=== PATIENT | male | born 1975 | race Caucasian/White ===

== ENCOUNTER 2022-05-24 18:35 | Emergency (ER) | payer OTHER, SELFPAY ==
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
[2022-05-24] MEDS ORDERED: LIDOCAINE HCL JELLY 2% 6 ML SYRINGE TOP ONE (19:11)
--- NOTE | 2022-05-24 19:31 | EDPHYS ---
Physician Documentation [facility] Name: Yair Mccarthy II Age: 46 yrs Sex: Male : 1975 Arrival Date: 05/24/2022 Time: 18:36 Bed 13 Private MD: JACQUELINE Physician Darell Mcneil Historical: - Allergies: 05/24 18:47 No Known Allergies; ll1 - PMHx: 18:47 Hypertensive disorder; RLS; ll1 - PSHx: 18:47 back SX, laminectomy; shoulder SX; Appendectomy; ll1 - Immunization history:: Client reports receiving the 2nd dose of the Covid vaccine. - Social history:: Smoking status: Patient denies any tobacco usage or history of. Vital Signs: 18:45 BP 113 / 74; Pulse 74; Resp 16; Temp 98.5; Pulse Ox 100% on R/A; Weight 72.57 kg; ll1 Height 5 ft. 9 in. ; Pain 5/10; 18:45 Body Mass Index 23.63 (72.57 kg, 175.26 cm) ll1 18:45 Pain Scale: Adult ll1 MDM: 18:41 Patient medically screened. cp Administered Medications: No medications were administered Disposition Summary: 05/24/22 19:31 Discharge Ordered Location: Home cp Problem: chronic cp Symptoms: have improved cp Condition: Stable cp Diagnosis - Unspecified hemorrhoids cp Followup: cp - With: Private Physician - When: 2 - 3 days - Reason: Recheck today's complaints Forms: - Medication Reconciliation Form cp - Thank You Letter cp - Antibiotic Education cp - Prescription Opioid Use cp Signatures: Jhonny Lombardo PA PA cp Pérez Ibarra, RN RN ll1
--- NOTE | 2022-05-24 19:31 | ER ---
Nurse's Notes [facility] Name: Yair Mccarthy II Age: 46 yrs Sex: Male : 1975 Arrival Date: 05/24/2022 Time: 18:36 Bed 13 Private MD: Diagnosis: Unspecified hemorrhoids Presentation: 05/24 18:45 Chief complaint: Patient states: Rectal prolapse and hemorrhoids for 2-3 days. Has ll1 history of rectal prolapse. Had to miss work. Coronavirus screen: Vaccine status: Patient reports receiving the 2nd dose of the covid vaccine. Client denies travel out of the [place] in the last 14 days. At this time, the client does not indicate any symptoms associated with coronavirus-19. Ebola Screen: Patient denies travel to an Ebola-affected area in the 21 days before illness onset. Initial Sepsis Screen: Does the patient meet any 2 criteria? No. Patient's initial sepsis screen is negative. Does the patient have a suspected source of infection? Yes: Other: anal pain/prolapse. Risk Assessment: Do you want to hurt yourself or someone else? Patient reports no desire to harm self or others. Onset of symptoms was May 22, 2022. 18:45 Method Of Arrival: Ambulatory ll1 18:45 Acuity: KECIA 4 ll1 Historical: - Allergies: 18:47 No Known Allergies; ll1 - PMHx: 18:47 Hypertensive disorder; RLS; ll1 - PSHx: 18:47 back SX, laminectomy; shoulder SX; Appendectomy; ll1 - Immunization history:: Client reports receiving the 2nd dose of the Covid vaccine. - Social history:: Smoking status: Patient denies any tobacco usage or history of. Vital Signs: 18:45 BP 113 / 74; Pulse 74; Resp 16; Temp 98.5; Pulse Ox 100% on R/A; Weight 72.57 kg; ll1 Height 5 ft. 9 in. ; Pain 5/10; 18:45 Body Mass Index 23.63 (72.57 kg, 175.26 cm) ll1 18:45 Pain Scale: Adult ll1 ED Course: 18:36 Patient arrived in ED. am2 18:41 Jhonny Lombardo PA is PHCP. cp 18:41 Darell Mcneil MD is Attending Physician. cp 18:47 Triage completed. 1 18:48 Arm band placed on Patient placed in an exam room, on a stretcher. ll1 19:03 Yvette Vela, RN is Primary Nurse. eh3 Administered Medications: No medications were administered Outcome: 19:31 Discharge ordered by MD. cp Signatures: Jhonny Lombardo PA PA cp Moreno, Amanda am2 Lewis, Lynsay RN RN 1 Yvette Vela, RN RN 3
[2022-05-24 19:43] VITALS: BP 113/74; TEMP 98.5; O2SAT 100
== END 2022-05-24 19:38 | disposition home or self-care (01) ==
LOC: ER 18:35
DX: K64.9 Unspecified hemorrhoids (principal)
CPT/HCPCS: 99283

== ENCOUNTER 2023-01-11 17:55 | Emergency (ER) | payer SELFPAY ==
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
[2023-01-11] MEDS ORDERED: KETOROLAC 30 MG/ML INJ ONE (18:51)
[2023-01-11 18:56] LABS: Specific Gravity 1.015 (1.005-1.030); Urine Bilirubin NEGATIVE (Negative); Urine Blood Negative (Negative); Urine Clarity Clear (Clear); Urine Color Light-Yellow (Yellow); Urine Glucose NEGATIVE (Negative); Urine Protein NEGATIVE (Negative); Urine Urobilinogen Normal (Normal)
--- NOTE | 2023-01-11 19:57 | ER ---
Nurse's Notes [facility] Name: Yair Mccarthy II Age: 47 yrs Sex: Male : 1975 Arrival Date: 01/11/2023 Time: 17:55 Bed DIS3 Private MD: Diagnosis: Low back pain Presentation: 01/11 18:05 Chief complaint: Patient states: low back pain X3 days. Coronavirus screen: Vaccine cm10 status: Patient reports receiving the 2nd dose of the covid vaccine. Client denies travel out of the [place] in the last 14 days. Ebola Screen: Patient denies travel to an Ebola-affected area in the 21 days before illness onset. No symptoms or risks identified at this time. Initial Sepsis Screen: Does the patient meet any 2 criteria? No. Patient's initial sepsis screen is negative. Does the patient have a suspected source of infection? No. Patient's initial sepsis screen is negative. Risk Assessment: Do you want to hurt yourself or someone else? Patient reports no desire to harm self or others. Onset of symptoms was January 11, 2023. 18:05 Method Of Arrival: Ambulatory cm10 18:05 Acuity: KECIA 4 cm10 Historical: - Allergies: 18:06 No Known Allergies; cm10 - PMHx: 18:06 Hypertensive disorder; RLS; cm10 - PSHx: 18:06 Appendectomy; shoulder SX; back SX; cm10 - Immunization history:: Adult Immunizations unknown. - Social history:: Smoking status: Patient denies any tobacco usage or history of. Vital Signs: 18:05 BP 112 / 90; Pulse 84; Resp 18; Temp 98.3; Pulse Ox 100% ; Weight 72.12 kg; Height 5 cm10 ft. 9 in. ; Pain 0/10; 18:05 Body Mass Index 23.48 (72.12 kg, 175.26 cm) cm10 18:05 Pain Scale: Adult cm10 ED Course: 17:58 Patient arrived in ED. mr 18:06 Triage completed. cm10 18:07 Arm band placed on Patient placed in an exam room, on a stretcher. 10 18:27 Marija Cordero FNP is [facility] 18:27 Carlos Mcclendon MD is Attending Physician. 7 18:42 Urinalysis w/ reflexes Sent. Administered Medications: 18:40 Drug: Ketorolac IM 60 mg IM once Route: IM; Site: left deltoid; Outcome: 19:57 Discharge ordered by MD. zhao 20:08 Patient left the ED. bp Signatures: Denia Huerta, Reg Reg mr Shantell Ray, RN RN hb Fredo Lemus RN RN bp Marija Cordero, MEDICINE WORKER MEDICINE WORKER Alecia Leone RN RN cm10
--- NOTE | 2023-01-11 19:57 | EDPHYS ---
Physician Documentation [facility] Name: Yair Mccarthy II Age: 47 yrs Sex: Male : 1975 Arrival Date: 01/11/2023 Time: 17:55 Bed DIS3 Private MD: ED Physician Carlos Mcclendon HPI: 01/11 18:06 This 47 yrs old Male presents to ER via Ambulatory with complaints of Back Pain. jh7 18:06 The patient presents with pain that is acute, with no known mechanism of injury. The jh7 symptoms are located in the low back. Onset: The symptoms/episode began/occurred 3 day(s) ago. The pain does not radiate. Associated signs and symptoms: The patient has no apparent associated signs or symptoms. Historical: - Allergies: 18:06 No Known Allergies; cm10 - PMHx: 18:06 Hypertensive disorder; RLS; cm10 - PSHx: 18:06 Appendectomy; shoulder SX; back SX; cm10 - Immunization history:: Adult Immunizations unknown. - Social history:: Smoking status: Patient denies any tobacco usage or history of. ROS: 18:06 Constitutional: Negative for fever, chills, and weight loss, Eyes: Negative for injury, jh7 pain, redness, and discharge, Neck: Negative for injury, pain, and swelling, Cardiovascular: Negative for chest pain, palpitations, and edema, Respiratory: Negative for shortness of breath, cough, wheezing, and pleuritic chest pain, Abdomen/GI: Negative for abdominal pain, nausea, vomiting, diarrhea, and constipation, : Negative for injury, bleeding, discharge, and swelling, MS/Extremity: Negative for injury and deformity, Skin: Negative for injury, rash, and discoloration, Neuro: Negative for headache, weakness, numbness, tingling, and seizure, 18:06 Back: Positive for pain at rest, flank pain, bilaterally, 18:06 All other systems are negative, Exam: 18:06 Constitutional: This is a well developed, well nourished patient who is awake, alert, jh7 and in no acute distress. Head/Face: Normocephalic, atraumatic. Eyes: Pupils equal round and reactive to light, extra-ocular motions intact. Lids and lashes normal. Conjunctiva and sclera are non-icteric and not injected. Cornea within normal limits. Periorbital areas with no swelling, redness, or edema. Cardiovascular: Regular rate and rhythm with a normal S1 and S2. No gallops, murmurs, or rubs. Normal PMI, no JVD. No pulse deficits. Respiratory: Lungs have equal breath sounds bilaterally, clear to auscultation and percussion. No rales, rhonchi or wheezes noted. No increased work of breathing, no retractions or nasal flaring. Abdomen/GI: Soft, non-tender, with normal bowel sounds. No distension or tympany. No guarding or rebound. No evidence of tenderness throughout. MS/ Extremity: Pulses equal, no cyanosis. Neurovascular intact. Full, normal range of motion. Neuro: Awake and alert, GCS 15, oriented to person, place, time, and situation. Normal gait. 18:06 Back: pain, that is mild, of the left low back and right low back, ROM is normal, normal spinal alignment noted, CVA tenderness, is absent, Vital Signs: 18:05 BP 112 / 90; Pulse 84; Resp 18; Temp 98.3; Pulse Ox 100% ; Weight 72.12 kg; Height 5 cm10 ft. 9 in. ; Pain 0/10; 18:05 Body Mass Index 23.48 (72.12 kg, 175.26 cm) cm10 18:05 Pain Scale: Adult cm10 MDM: 18:27 Patient medically screened. [facility] 19:58 Differential diagnosis: arthritis, chronic back pain, Osteoarthritis ruptured disc, [facility] Ureterolithiasis. Data reviewed: vital signs, nurses notes, lab test result(s), urinalysis. I considered the following discharge prescriptions or medication management in the emergency department Medications were administered in the Emergency Department. See MAR. Counseling: I had a detailed discussion with the patient and/or guardian regarding the historical points, exam findings, and any diagnostic results supporting the discharge/admit diagnosis, to return to the emergency department if symptoms worsen or persist or if there are any questions or concerns that arise at home. Response to treatment: the patient's symptoms have markedly improved after treatment. ED course: Patient reports history of surgery on his lower back and states that the pain is actually been intermittent for a long time. Advised follow-up with PCP for MRI if indicated.. 01/11 18:30 Order name: Urinalysis w/ reflexes [facility] Administered Medications: 18:40 Drug: Ketorolac IM 60 mg IM once Route: IM; Site: left deltoid; hb Disposition: 01/12 09:42 Co-signature as Attending Physician, Carlos Mcclendon MD I reviewed the patient's care rn provided by the Advanced Practice Provider and agree with the diagnosis and treatment plan. Disposition Summary: 01/11/23 19:57 Discharge Ordered Notes: Location: Home [facility] Problem: new [facility] Symptoms: have improved [facility] Condition: Stable [facility] Diagnosis - Low back pain [facility] Followup: [facility] - With: Private Physician - When: 2 - 3 days - Reason: Recheck today's complaints Discharge Instructions: - Discharge Summary Sheet [facility] - Acute Back Pain, Adult [facility] - Musculoskeletal Pain [facility] Forms: - Medication Reconciliation Form [facility] - Thank You Letter [facility] - Patient Portal Instructions [facility] - Leadership Thank You Letter [facility] Prescriptions: - Zanaflex 4 mg Oral Tablet - take 1 tablet ORAL route every 8 hours As needed; 20 tablet; Refills: 0, [facility] Product Selection Permitted - Medrol (Kevin) 4 mg Oral Tablets, Dose Pack - take 1 tablet ORAL route as directed - follow package instructions; 1 packet; [facility] Refills: 0, Product Selection Permitted Signatures: Dispatcher [employer] EDCarlos Blackman MD MD rn Baxter, Heather, RN RN hb Hadash, Jennifer, HOT KETTLE TENDER [place] [address] Alecia King RN RN cm10
[2023-01-11 20:17] VITALS: BP 112/90; TEMP 98.3; O2SAT 100
== END 2023-01-11 20:08 | disposition home or self-care (01) ==
LOC: ER 17:55
DX: M54.50 Low back pain, unspecified (principal)
CPT/HCPCS: 81003; 96372; 99284